=== PATIENT | female | born 1965 | race Hispanic/Latino ===

== ENCOUNTER 2017-07-16 14:35 | Emergency (ER) | payer OTHER ==
[2017-07-16] MEDS ORDERED: Sodium Chloride 0.9% 2,500 ML IV ONE (16:13)
--- NOTE | 2017-07-16 16:13 | C.PDOC ---
History Of Present Illness Patient is a 51 y/o female who presents to the ED with complaints of vomiting, HEARD, and generalized weakness upon waking up this morning. Denies any fever, associated vertigo, or dizziness. Patient notes feeling generally worse when ambulating. Patient has a PMHx of a migraine and PSHx of acute cholecystitis. Patient has no other physical complaints at this time. Time Seen by Provider: 07/16/17 15:40 Chief Complaint (Nursing): GI Problem History Per: Patient History/Exam Limitations: no limitations Onset/Duration Of Symptoms: Hrs (this morning) Current Symptoms Are (Timing): Still Present Associated Symptoms: denies: Fever Past Medical History Reviewed: Historical Data, Nursing Documentation, Vital Signs Vital Signs: Last Vital Signs Temp 99.5 F 07/16/17 18:04 Pulse 100 H 07/16/17 18:04 Resp 18 07/16/17 18:04 BP 143/83 07/16/17 18:04 Pulse Ox 97 07/16/17 18:05 - Medical History PMH: Migraine Surgical History: Cholecystectomy (4 years ago) Family History: States: No Known Family Hx - Social History Hx Tobacco Use: No Hx Alcohol Use: Yes Hx Substance Use: No - Immunization History Hx Influenza Vaccination: No Hx Pneumococcal Vaccination: No Review Of Systems Constitutional: Positive for: Weakness (generalized). Negative for: Fever Gastrointestinal: Positive for: Vomiting (multiple episodes) Neurological: Negative for: Dizziness Physical Exam - Physical Exam Appears: Non-toxic, No Acute Distress Skin: Normal Color, Warm, Dry Head: Atraumatic, Normacephalic Eye(s): bilateral: PERRL, EOMI Oral Mucosa: Moist Chest: Symmetrical Cardiovascular: Rhythm Regular, No Murmur Respiratory: Normal Breath Sounds, No Rales, No Rhonchi, No Wheezing Gastrointestinal/Abdominal: Soft, Tenderness (mild epigastric tenderness) Neurological/Psych: Oriented x3, Normal Speech, Normal Cognition ED Course And Treatment - Laboratory Results Result Diagrams: 07/16/17 16:47 07/16/17 16:47 O2 Sat by Pulse Oximetry: 97 (room air) Pulse Ox Interpretation: Normal Progress - Re-Evaluation Re-evaluation Note: 07/16/17 18:05 FEELS BETTER. +UO. STILL W RESIDUAL HEARD. 07/16/17 18:42 vss neuro intact. - Data Reviewed Data Reviewed: Lab Medical Decision Making Medical Decision Making: HCG test, UA, and blood work ordered. Pepcid, zofran, and IV fluids administered. Disposition Counseled Patient/Family Regarding: Studies Performed, Diagnosis - Disposition Disposition Time: 19:00 Condition: STABLE Forms: [facility] ([place]an) - Clinical Impression Clinical Impression: Vomiting, Headache, Influenza-like illness - Scribe Statement The provider has reviewed the documentation as recorded by the Scribe Zina Schumacher All medical record entries made by the Scribe were at my direction and personally dictated by me. I have reviewed the chart and agree that the record accurately reflects my personal performance of the history, physical exam, medical decision making, and the department course for this patient. I have also personally directed, reviewed, and agree with the discharge instructions and disposition. Physician Patient Turnover Patient Signed Over To: Dena Monahan Handoff Comments: lupe reeval,dispo
[2017-07-16] MEDS ORDERED: Sodium Chloride 0.9% 1,000 ML ONE (16:48)
[2017-07-16 16:58] LABS: BASO # 0.1 K/uL (0.0-0.2); BASO % 0.5 % (0.0-2.0); EOS # 0.1 K/uL (0.0-0.7); EOS % 0.7 % (0.0-4.0); HEMOGLOBIN 15.5 g/dL (11.0-16.0); LYMPH # 0.3 K/uL (1.0-4.3); LYMPH % 2.7 % (20.0-40.0); MEAN CELL VOLUME 87.8 fL (81.0-99.0); MEAN CORPUSCULAR HEMOGLOBIN 29.9 pg (27.0-31.0); MEAN PLATELET VOLUME 8.9 fL (7.2-11.7); MONO # 0.4 K/uL (0.0-0.8); MONO % 3.7 % (0.0-10.0); NEUT # 9.7 K/uL (1.8-7.0); NEUT % 92.4 % (50.0-75.0); PLATELET COUNT 229 K/uL (130-400); RBC 5.17 Mil/uL (3.80-5.20); RED CELL DISTRIBUTION WIDTH 13.5 % (11.5-14.5); WHITE BLOOD COUNT 10.5 K/uL (4.8-10.8)
[2017-07-16 17:08] LABS: ALB/GLOB RATIO 1.2 (1.0-2.1); ALBUMIN 3.9 g/dL (3.5-5.0); ALT/SGPT 25 U/L (9-52); AST/SGOT 30 U/L (14-36); BLOOD UREA NITROGEN 19 mg/dL (7-17); CALCIUM 8.8 mg/dl (8.6-10.4); GFR AFRICAN-AMERICAN > 60; GFR NON-AFRICAN AMERICAN > 60; LIPASE 102 U/L (23-300)
[2017-07-16 17:19] LABS: BANDS 2 % (0-2); EOSINOPHIL 1 % (0-4); LYMPHOCYTE 3 % (20-40); MONOCYTE 4 % (0-10); NEUTROPHIL 90 % (50-75); TOTAL CELLS COUNTED 100
[2017-07-16 17:20] LABS: ANISOCYTOSIS SLIGHT; PLATELET ESTIMATE NORMAL (NORMAL)
[2017-07-16 17:21] LABS: LARGE PLATELETS PRESENT
[2017-07-16] MEDS ORDERED: Sodium Chloride 0.9% 2,000 ML ONE (17:25)
[2017-07-16 18:44] LABS: HCG,QUALITATIVE URINE NEGATIVE (NEGATIVE)
[2017-07-16 18:48] LABS: URINE BACTERIA RARE (<OCC); URINE BILIRUBIN NEGATIVE (NEGATIVE); URINE BLOOD NEGATIVE (NEGATIVE); URINE CLARITY Clear (Clear); URINE COLOR Yellow (YELLOW); URINE GLUCOSE (UA) NORMAL (Normal); URINE LEUKOCYTE ESTERASE NEG Leu/uL (Negative); URINE NITRATE NEGATIVE (NEGATIVE); URINE PROTEIN NEGATIVE (NEGATIVE); URINE UROBILINOGEN NORMAL mg/dL (0.2-1.0)
[2017-07-16] MEDS ORDERED: Iodixanol 320 MG/ML 100 ML BOTTLE IV ONE (21:20)
[2017-07-16 22:06] VITALS: BP 118/70; PULSE 77; RESP 18; TEMP 98.6; O2SAT 97
--- NOTE | 2017-07-17 08:30 | RAD ---
PROCEDURE: Radiographs of the chest and abdomen (obstructive series) HISTORY: Vomiting COMPARISON: No prior. TECHNIQUE: AP radiograph of the chest, with upright and supine radiographs of the abdomen. FINDINGS: CHEST: Lungs: Clear. Cardiovascular: Normal size heart. No pulmonary vascular congestion. Pleura: No pleural fluid. No pneumothorax. Other findings: None. ABDOMEN AND PELVIS: Bowel: Unremarkable bowel gas pattern. No evidence of mechanical obstruction. Free air: None. Bones: Unremarkable. Other findings: None. IMPRESSION: Unremarkable radiographs of chest and abdomen. No evidence of mechanical bowel obstruction.
--- NOTE | 2017-07-17 09:00 | CT ---
PROCEDURE: CT Abdomen and Pelvis with contrast HISTORY: Abdominal pain, vomiting. COMPARISON: None. TECHNIQUE: Contrast dose: 100 ML VISIPAQUE 320 Radiation dose: Total exam DLP = 682.44 mGy-cm. This CT exam was performed using one or more of the following dose reduction techniques: Automated exposure control, adjustment of the mA and/or kV according to patient size, and/or use of iterative reconstruction technique. FINDINGS: LOWER THORAX: Unremarkable. LIVER: Unremarkable. No gross lesion or ductal dilatation. GALLBLADDER AND BILE DUCTS: Status post cholecystectomy PANCREAS: Unremarkable. No gross lesion or ductal dilatation. SPLEEN: Unremarkable. ADRENALS: Unremarkable. No mass. KIDNEYS AND URETERS: Unremarkable. No hydronephrosis. No solid mass. VASCULATURE: Unremarkable. No aortic aneurysm. BOWEL: Unremarkable. No obstruction. No gross mural thickening. APPENDIX: Normal appendixNot identified. PERITONEUM: Unremarkable. No free fluid. No free air. LYMPH NODES: Unremarkable. No enlarged lymph nodes. BLADDER: Unremarkable. REPRODUCTIVE: Normal uterus BONES: No acute fracture. OTHER FINDINGS: None. IMPRESSION: Unremarkable examination. Status post cholecystectomy. No evidence of bowel obstruction. No evidence of appendicitis. Preliminary interpretation of this examination was reported by [facility] at 10:18 p.m. on 07/16/2017. There is concurrence of this report with the preliminary interpretation.
== END 2017-07-16 22:39 | disposition home or self-care (01) ==
LOC: C.ER 14:35
DX: J11.1 Influenza due to unidentified influenza virus with other respiratory manifestations (principal); R10.9 Unspecified abdominal pain; R11.2 Nausea with vomiting, unspecified
CPT/HCPCS: 74022; 74177; 80053; 81001; 83690; 84703; 85025; 87804; 96374; 96375; 99285; J1885; J2405; J7040; Q9967